=== PATIENT | male | born 1950 | race Caucasian/White ===

== ENCOUNTER 2021-04-03 11:32 | Emergency (ER) | payer BC, MEDICARE ==
--- NOTE | 2021-04-03 13:39 | EDM.PDOC ---
ED HPI GENERAL MEDICAL PROBLEM - General Chief Complaint: Genitourinary Problem Stated Complaint: CAN'T URINATE Time Seen by Provider: 04/03/21 13:10 Source of Information: Reports: Patient History Limitations: Reports: No Limitations - History of Present Illness INITIAL COMMENTS - FREE TEXT/NARRATIVE: This is a 70-year-old male with history of BPH and urinary retention who pres ents with concerns of acute urinary retention. He reports that he frequently has issues initiating urination and has symptoms of retention. He began noticing these yesterday evening. Today he is having increasing suprapubic discomfort and was unable to void. He is otherwise been feeling well. No fevers or chills. No pain in the flanks. He recently had an adjustment to his lisinopril, no other medication changes. Bladder Pain Score (Numeric/FACES): 9 - Related Data Allergies Allergy/AdvReac Type Severity Reaction Status Date / Time Iodine and Iodide Containing Allergy Intermediate Hives Verified 04/03/21 12:27 Produc Home Meds: Home Meds Omeprazole 20 mg PO BIDAC 04/03/21 [History] Simvastatin 20 mg PO BEDTIME 04/03/21 [History] Tamsulosin [Tamsulosin 24 Hr] 0.4 mg PO DAILY 04/03/21 [History] lisinopriL [Lisinopril] 40 mg PO DAILY 04/03/21 [History] Past Medical History Cardiovascular History: Reports: High Cholesterol, Hypertension Gastrointestinal History: Reports: GERD, Hemorrhoids Genitourinary History: Reports: Prostate Disorder Musculoskeletal History: Reports: Arthritis Endocrine/Metabolic History: Reports: Obesity/BMI 30+ - Infectious Disease History Infectious Disease History: Reports: Measles - Past Surgical History GI Surgical History: Reports: Colonoscopy Social & Family History - Tobacco Use Tobacco Use Status *Q: Never Tobacco User - Caffeine Use Caffeine Use: Reports: Coffee - Recreational Drug Use Recreational Drug Use: No ED ROS GENERAL - Review of Systems Review Of Systems: See Below Constitutional: Reports: No Symptoms HEENT: Reports: No Symptoms Respiratory: Reports: No Symptoms Cardiovascular: Reports: No Symptoms Endocrine: Reports: No Symptoms GI/Abdominal: Reports: No Symptoms : Reports: Urinary Retention Musculoskeletal: Reports: No Symptoms Skin: Reports: No Symptoms Neurological: Reports: No Symptoms Psychiatric: Reports: No Symptoms Hematologic/Lymphatic: Reports: No Symptoms Immunologic: Reports: No Symptoms ED EXAM, RENAL/ - Physical Exam Exam: See Below Exam Limited By: No Limitations General Appearance: Alert, No Apparent Distress Ears: Normal External Exam Nose: Normal Inspection Throat/Mouth: Normal Inspection Head: Atraumatic, Normocephalic Neck: Normal Inspection Respiratory/Chest: No Respiratory Distress Cardiovascular: Regular Rate, Rhythm GI/Abdominal: Soft, Non-Tender (Male) Exam: Other (Simpson catheter in place, draining light yellow urine) Back Exam: Normal Inspection. No: CVA Tenderness (R), CVA Tenderness (L) Extremities: Normal Inspection Neurological: Alert, Oriented Psychiatric: Normal Affect, Normal Mood Skin Exam: Warm, Dry Course - Vital Signs Last Recorded V/S: Last Vital Signs Temp 35.7 C L 04/03/21 12:24 Pulse 90 04/03/21 12:24 Resp 18 04/03/21 12:24 BP 153/81 H 04/03/21 12:24 Pulse Ox 18 L 04/03/21 12:24 - Orders/Labs/Meds Labs: Laboratory Tests 04/03/21 Range/Units 13:37 Urine Color Yellow (YELLOW) Urine Appearance Cloudy A (CLEAR) Urine pH 5.5 (5.0-8.0) Ur Specific [place] 1.020 (1.008-1.030) Urine Protein 30 H (NEGATIVE) mg/dL Urine Glucose (UA) Negative (NEGATIVE) mg/dL Urine Ketones Negative (NEGATIVE) mg/dL Urine Occult Blood Large H (NEGATIVE) Urine Nitrite Negative (NEGATIVE) Urine Bilirubin Negative (NEGATIVE) Urine Urobilinogen 0.2 (0.2-1.0) EU/dL Ur Leukocyte Esterase Negative (NEGATIVE) Urine RBC 40-50 H (0-5) Urine WBC 0-5 (0-5) Ur Epithelial Cells Few Amorphous Sediment Not seen Urine Bacteria Few Urine Mucus Moderate - Re-Assessments/Exams Free Text/Narrative Re-Assessment/Exam: 70-year-old male presents with concerns of urinary retention. Has a history of BPH and frequent difficulty with urination. Simpson placed and drained approximately 1600 cc of urine. He is already managed on tamsulosin. UA obtained and without evidence of infection. It ultimately came to light that the patient took 3 Benadryl yesterday. I suspect this is what tipped him over and causes acute urinary retention. We agreed we are going to leave the Simpson in place for the next 24 to 48 hours, at which time I think it be appropriate for him to have it pulled and do a voiding trial. He is visiting from out of town so may need to present to an urgent care to do this. 04/03/21 14:03 Departure - Departure Time of Disposition: 14:12 Disposition: Home, Self-Care 01 Clinical Impression: Acute urinary retention - Discharge Information *PRESCRIPTION DRUG MONITORING PROGRAM REVIEWED*: No *COPY OF PRESCRIPTION DRUG MONITORING REPORT IN PATIENT NAN: No Instructions: Indwelling Urinary Catheter Care, Adult, Acute Urinary Retention, Male Referrals: [facility] [Other] Forms: ED Department Discharge Additional Instructions: As discussed, you need to follow-up in 24 to 48 hours for Simpson removal and a trial of urination. You most likely are having retention due to your use of Benadryl. If you develop feelings of pain or recurrent retention with a Simpson in please see a physician as the Simpson may be clogged. Thank you for trusting us care for you today. Sepsis Event Note (ED) - Evaluation Sepsis Screening Result: No Definite Risk - Focused Exam Vital Signs: Vital Signs Temp Pulse Resp BP Pulse Ox 04/03/21 12:24 35.7 C L 90 18 153/81 H 18 L
== END 2021-04-03 14:51 | disposition home or self-care (01) ==
LOC: JP.ED 11:32
DX: R33.9 Retention of urine, unspecified (principal); E78.00 Pure hypercholesterolemia, unspecified; I10 Essential (primary) hypertension; E66.9 Obesity, unspecified; K21.9 Gastro-esophageal reflux disease without esophagitis; Z68.30 Body mass index [BMI] 30.0-30.9, adult; Z91.041 Radiographic dye allergy status; Z79.899 Other long term (current) drug therapy
CPT/HCPCS: 81001; 99283